=== PATIENT | male | born 1960 | race Caucasian/White ===

== ENCOUNTER 2018-12-05 13:01 | Emergency (ER) | payer SELFPAY ==
[~2018-12-05] VITALS: Ht 165.1 cm; Wt 75.0 kg
[2018-12-05 13:03] VITALS: BP 140/73
== END 2018-12-05 13:26 | disposition left against medical advice (07) ==
LOC: ER 13:01
DX: F10.129 Alcohol abuse with intoxication, unspecified (principal); Y90.9 Presence of alcohol in blood, level not specified
CPT/HCPCS: 99283